=== PATIENT | male | born 2000 ===

== ENCOUNTER 2021-01-31 20:58 | Emergency (ER) | payer SELFPAY | END 2021-01-31 21:27 | disposition left against medical advice (07) | LOC: ANHED 21:26 | DX: Z53.21 Procedure and treatment not carried out due to patient leaving prior to being seen by health care provider (principal) | CPT/HCPCS: 99199 ==

== ENCOUNTER 2022-08-08 10:39 | Emergency (ER) | payer BC, SELFPAY ==
--- NOTE | ~2022-08-08 | XR_ITS ---
EXAMINATION: XR foot RT min 3V DATE: 08/08/2022 11:15 INDICATION: Right foot pain and swelling TECHNIQUE: Dorsoplantar, two oblique and lateral views of the right foot were obtained. COMPARISON: None. FINDINGS: Alignment is normal. No fracture. Joint spaces are normal. No right ankle joint effusion. There is a 7 mm long, very thin wire-like metallic foreign body in the plantar fat pad at the anterior aspect of the heel, the more superficial and of which projects to within 5.5 mm of the skin surface. No soft t issue gas. IMPRESSION: 1. 7 mm long very thin wire-like metallic foreign body in the plantar fat pad. Reviewed, dictated and finalized at location A.
--- NOTE | ~2022-08-08 | XR_ITS ---
EXAMINATION: XR hand RT min 3V DATE: 08/08/2022 11:15 INDICATION: Pain and swelling at the right fifth digit TECHNIQUE: Posteroanterior, oblique and lateral views of the right hand were obtained. COMPARISON: None. FINDINGS: Alignment is normal. No fracture. Joint spaces are normal. No cortical erosions or periosteal reactio n. Soft tissue swelling along the dorsal aspect of the hand at the level of the heads of the metacarp als. No soft tissue gas or radiopaque foreign bodies. IMPRESSION: 1. No osseous abnormality. Reviewed, dictated and finalized at location A. IMPRESSION: 1. No osseous abnormality.
[2022-08-08 10:53] VITALS: BP 161/98; PULSE 95; RESP 16; TEMP 36.3; O2SAT 100
--- NOTE | 2022-08-08 11:00 | ED.GENADULT ---
HPI - General Adult General Chief complaint: Extremity Injury, Upper Stated complaint: HAND AND FOOT PAIN Time Seen by Provider: 08/08/22 10:53 History of Present Illness HPI narrative: Lisa is a previously healthy 21M that presented to the ED with pain in his right hand and right foot. He hurt his right foot while dancing a few days ago. Later, after that he was drinking. When he came to he found his right hand to be painful and swollen. He is not sure how it happened. He has no other concerns. Related Data Home Medications Medication Instructions Recorded Confirmed No Home Medications 08/08/22 08/08/22 Allergies Allergy/AdvReac Type Severity Reaction Status Date / Time No Known Allergies Allergy Verified 08/08/22 10:57 Review of Systems Review of Systems: All systems reviewed & are unremarkable except as noted in HPI and below Exam Const: General: healthy appearing and no acute distress Nutritional Appearance: well nourished Orientation/consciousness: patient oriented x3 HENMT: Head: normal to inspection Ears: external ears normal Eyes: Conjunctivae: conjunctivae normal Pupils: Equal, round and reactive pupils present EOM: EOMs intact bilaterally Neck: Neck: normal visual inspection Chest: Chest palpation & inspection: normal inspection of the chest Resp: Effort & Inspection: normal respiratory effort Cardio: Rate: regular rate Skin: General skin exam: normal color Rashes: no rashes Neuro: General: patient oriented x3 and moves all extremities Extrem: Other: Right hand was swollen and TTP on the lateral side Right foot was swollent and TTP around the ball of the foot. Psych: Mental Status: mental status grossly normal Course Course Emergency Course: EXAMINATION: XR foot RT min 3V DATE: 08/08/2022 11:15 INDICATION: Right foot pain and swelling TECHNIQUE: Dorsoplantar, two oblique and lateral? views of the right foot were obtained. COMPARISON: None. FINDINGS: Alignment is normal. No fracture. Joint spaces are normal. No right ankle joint effusion. There is a 7 mm long, very thin wire-like metallic foreign body in the plantar fat pad at the anterior aspect of the heel, the more superficial and of which projects to within 5.5 mm of the skin surface. No soft tissue gas. IMPRESSION: 1. 7 mm long very thin wire-like metallic foreign body in the plantar fat pad. I brought up the Xray results with him. He is not having any pain at the area of the foreign body and cannot recall any incident that could have caused this. EXAMINATION: XR hand RT min 3V DATE: 08/08/2022 11:15 INDICATION: Pain and swelling at the right fifth digit TECHNIQUE: Posteroanterior, oblique and? lateral views of the right hand were obtained. COMPARISON: None. FINDINGS: Alignment is normal. No fracture. Joint spaces are normal. No cortical erosions or periosteal reaction. Soft tissue swelling along the dorsal aspect of the hand at the level of the heads of the metacarpals. No soft tissue gas or radiopaque foreign bodies. IMPRESSION: 1. No osseous abnormality. We discussed the foreign body in his foot and the need for him to follow up with a drafter directional survey for further evaluation. Vital Signs Vital signs: Vital Signs Temperature 97.3 F L 08/08/22 10:53 Pulse Rate 95 08/08/22 10:53 Respiratory Rate 16 08/08/22 10:53 Blood Pressure 161/98 H 08/08/22 10:53 Pulse Oximetry 100 08/08/22 10:53 Oxygen Delivery Room Air 08/08/22 10:53 Temperature 97.3 F L 08/08/22 10:53 Pulse Rate 95 08/08/22 10:53 Respiratory Rate 16 08/08/22 10:53 Blood Pressure 161/98 H 08/08/22 10:53 Pulse Oximetry 100 08/08/22 10:53 Oxygen Delivery Room Air 08/08/22 10:53 Medical Decision Making Vital Signs Vital Signs: Vital Signs Temperature 97.3 F L 08/08/22 10:53 Pulse Rate 95 08/08/22 10:53 Respiratory Rate 16 08/08/22 10:53 Blood Pressure 161/98 H 08/08/22 10:53 Pulse Oximetry 100
[2022-08-08 11:49] VITALS: BP 161/98; PULSE 95; RESP 16; TEMP 36.3; O2SAT 100
== END 2022-08-08 11:50 | disposition home or self-care (01) ==
PROVIDERS: Emergency Provider Family Medicine
DX: S63.616A Unspecified sprain of right little finger, initial encounter (principal); S93.601A Unspecified sprain of right foot, initial encounter; S90.851A Superficial foreign body, right foot, initial encounter
CPT/HCPCS: 73130; 73630; 99284